=== PATIENT | male | born 1990 | race Caucasian/White ===

== ENCOUNTER 2017-09-22 13:13 | Emergency (ER) | payer MEDICAID ==
[~2017-09-22] VITALS: Ht 175.3 cm; Wt 77.0 kg
[2017-09-22 18:41] LABS: BASOPHILS % 0.4 % (0.0-2.0); EOSINOPHILS % 0.9 % (0.0-5.0); HEMOGLOBIN. 14.3 g/dL (14.0-18.0); LYMPHOCYTES % 12.4 % (20.0-50.0); MEAN CORPUSCULAR HEMOGLOBIN 28.6 pg (28.0-32.0); MEAN CORPUSCULAR VOLUME 86.3 fL (80.0-94.0); MEAN PLATELET VOLUME 10.1 fl (7.4-10.4); MONOCYTES % 4.8 % (2.0-8.0); NEUTROPHILS % 81.5 % (40.0-76.0); PLATELET 169 x1000/uL (130-400); RED BLOOD CELL COUNT 4.98 mill/uL (4.7-6.1); RED CELL DISTRIBUTION WIDTH 14.2 % (11.6-14.6)
[2017-09-22 18:47] LABS: CHLORIDE 103 mEq/L (98-107)
[2017-09-22 18:51] LABS: ETHANOL BLOOD < 10 mg/dL
[2017-09-22 19:57] LABS: HEPATITIS B SURFACE ANTIGEN NEGATIVE
[2017-09-22 20:25] LABS: HEPATITIS B CORE AB IGM NEGATIVE
[2017-09-22 20:27] LABS: HEPATITIS A AB IGM NEGATIVE (NEGATIVE)
[2017-09-22] MEDS ORDERED: SODIUM CHLORIDE 0.9% 1,000 ML IV ONE (21:15)
[2017-09-22 21:20] VITALS: BP 122/86
[2017-09-22 21:46] LABS: CLARITY URINE CLEAR (CLEAR); COLOR URINE YELLOW (YELLOW); KETONES URINE NEGATIVE (NEGATIVE); LEUKOCYTE ESTERASE URINE NEGATIVE (NEGATIVE); NITRITE URINE NEGATIVE (NEGATIVE); OCCULT BLOOD URINE NEGATIVE (NEGATIVE); PROTEIN URINE TRACE (NEGATIVE); SPECIFIC GRAVITY URINE 1.018 (1.005-1.030)
[2017-09-22 22:04] LABS: *AMPHETAMINES SCREEN URINE PRESUMTIVE POSITIVE (NEGATIVE); *BARBITURATES SCREEN URINE NEGATIVE (NEGATIVE); *BENZODIAZEPINES SCREEN URINE PRESUMTIVE POSITIVE (NEGATIVE); *COCAINE SCREEN URINE NEGATIVE (NEGATIVE); METHADONE URINE SCREEN NEGATIVE (NEGATIVE); OPIATES URINE SCREEN PRESUMTIVE POSITIVE (NEGATIVE)
[2017-09-22 22:05] LABS: CANNABINOID URINE SCREEN NEGATIVE (NEGATIVE); PHENCYCLIDINE URINE SCREEN NEGATIVE (NEGATIVE)
== END 2017-09-22 21:51 | disposition left against medical advice (07) ==
LOC: ER 13:37 → CANBEDREQ 09-23 02:18
DX: B19.20 Unspecified viral hepatitis C without hepatic coma (principal); D72.810 Lymphocytopenia; D72.828 Other elevated white blood cell count; F15.10 Other stimulant abuse, uncomplicated; F13.10 Sedative, hypnotic or anxiolytic abuse, uncomplicated; F11.10 Opioid abuse, uncomplicated; F19.10 Other psychoactive substance abuse, uncomplicated; R80.9 Proteinuria, unspecified; R16.0 Hepatomegaly, not elsewhere classified; R79.89 Other specified abnormal findings of blood chemistry; R74.0 Nonspecific elevation of levels of transaminase and lactic acid dehydrogenase [LDH]
CPT/HCPCS: 36415; 70450; 71045; 80053; 80305; 81003; 83036; 83880; 84484; 85025; 85610; 93005; 99285; G0482; J7030; Z7610; 86705; 86709; 86803; 87340